=== PATIENT | female | born 1990 | race Two or more races ===

== ENCOUNTER 2020-07-18 10:43 | Observation (INO) | payer SELFPAY ==
[2020-07-18 11:44] LABS: BILIRUBIN,URINE NEGATIVE (NEG); CLARITY,URINE CLEAR; COLOR,URINE YELLOW; NITRITE,URINE NEGATIVE (NEG); PH,URINE 6.5 (<5.0-8.0); PROTEIN,URINE 30 mg/dL (NEG-TRACE)
[2020-07-18 12:21] LABS: BACTERIA,URINE MANY /HPF (0-FEW)
[2020-07-18] MEDS ORDERED: IV RINGERS,LACTATED 1000ML 1,000 ML IV PRN (13:00)
== END 2020-07-18 13:14 | disposition home or self-care (01) ==
LOC: 3 SO LND 10:43
PROVIDERS: ADMIT Obstetrics & Gynecology; ATTEND Obstetrics & Gynecology
DX: O26.853 Spotting complicating pregnancy, third trimester (principal); Z3A.29 29 weeks gestation of pregnancy; Z79.899 Other long term (current) drug therapy
CPT/HCPCS: 59025; 81001; 87086; G0378; G0379

== ENCOUNTER 2020-07-25 11:33 | Inpatient (IN) | payer SELFPAY ==
[~2020-07-25] VITALS: Ht 162.6 cm; Wt 89.0 kg
[2020-07-25] MEDS ORDERED: BETAMET ACET&NA PHOS 30 MG/5 ML VIAL. IM STA (11:50)
[2020-07-25] MEDS ORDERED: IV RINGERS,LACTATED 1000ML 1,000 ML IV SCH (12:00)
[2020-07-25] MEDS ORDERED: TERBUTALINE 1 MG/ML VIAL. SQ PRN (12:00)
[2020-07-25] MEDS ORDERED: PENICILLIN G K 5,000,000 UNIT in IV DEXTROSE 5% 100ML 100 ML IV ONE (12:00)
[2020-07-25] MEDS ORDERED: OXYTOCIN 30 UNIT/500 ML PREMIX 500 ML IV PRN ×3 (12:00→16:30)
[2020-07-25] MEDS ORDERED: ACETAMINOPHEN 325 MG TABLET. PO PRN ×2 (12:00→16:30)
[2020-07-25] MEDS ORDERED: 0.9 % SODIUM CHLORIDE 10 ML DISP.SYRIN. IV PRN ×2 (12:00→16:30)
[2020-07-25] MEDS ORDERED: PENICILLIN G K 2,500,000 UNIT in IV DEXTROSE 5% 50 ML IV SCH ×2 (12:00→16:00)
[2020-07-25] MEDS ORDERED: BUTORPHANOL 2 MG/ML VIAL. IVP PRN ×2 (12:00)
[2020-07-25] MEDS ORDERED: LIDOCAINE 1% PF 30 ML VIAL. INJ PRN (12:00)
[2020-07-25] MEDS ORDERED: OXYTOCIN PREMIX 30 UNIT/500 ML NS BAG. IV ONE (12:15)
[2020-07-25 12:27] LABS: BASO % 0 % (0-3); EOS # 0.1 x10^3/uL (0.0-0.7); EOS % 1 % (0-3); HEMATOCRIT 41.3 % (36.0-47.0); HEMOGLOBIN 14.5 g/dL (12.0-15.5); LYMPH # 1.6 x10^3/uL (1.0-4.8); LYMPH % 14 % (24-48); MEAN CORPUSCULAR HEMOGLOBIN 33 pg (25-35); MEAN CORPUSCULAR HGB CONC 35 g/dL (31-37); MEAN CORPUSCULAR VOLUME 92 fL (79-100); MONO # 0.7 x10^3/uL (0.0-1.1); MONO % 6 % (0-9); NEUT # 8.7 x10^3/uL (1.8-7.7); NEUT % 79 % (31-73); PLATELET COUNT 233 x10^3/uL (140-400); RED BLOOD COUNT 4.47 x10^6/uL (3.50-5.40); RED CELL DISTRIBUTION WIDTH 13.9 % (11.5-14.5)
--- NOTE | 2020-07-25 13:18 | PDOC1 ---
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 The pt has had a relatively uncomplicated course at [facility] [place]. The pt denies PATEL, changes in vision or abd pain. PMH: [place] Palsy PSH: Denies Meds: PNV All: NKDA OBHx: TSVD x 1, SAB x 1 SH: no tob, no EtOH FH: noncontributory Medications: Meds: Current Medications Medications (Trade) Dose Ordered Sig/Ann Route PRN Reason Start Time Stop Time Status Last Admin Dose Admin Ringer's Solution 1,000 ml @ 125 mls/hr Q8H IV 07/25/20 12:00 07/25/20 12:30 Betamethasone Sodium Phosphate (Celestone Soluspan) 12 mg 1X STAT IM 07/25/20 11:50 07/25/20 11:55 DC 07/25/20 12:09 Penicillin G Potassium [id number] unit/Dextrose 100 ml @ 100 mls/hr 1X ONCE IV 07/25/20 12:00 07/25/20 12:59 DC 07/25/20 12:32 Allergies: Coded Allergies: No Known Drug Allergies (Unverified , 07/18/20) Physical Exam: PE: GENERAL: No apparent distress. Alert and oriented. HEENT: Head normocephalic, atraumatic. NECK: Supple LUNGS: Clear to auscultation. HEART: RRR, S1, S2 present, pulses intact ABDOMEN: Soft, positive bowel sounds. EXTREMITIES: No cyanosis or edema. NEUROLOGIC: Normal speech, normal tone PSYCHIATRIC: Normal affect, normal mood. SKIN: No ulceration. FHT: 150s +acels/no decels/mLTV [place]: 2-3min SVE: 6-7/C/-2 Labs: Laboratory Tests Test 07/25/20 12:14 White Blood Count 11.0 x10^3/uL (4.0-11.0) Red Blood Count 4.47 x10^6/uL (3.50-5.40) Hemoglobin 14.5 g/dL (12.0-15.5) Hematocrit 41.3 % (36.0-47.0) Mean Corpuscular Volume 92 fL (79-100) Mean Corpuscular Hemoglobin 33 pg (25-35) Mean Corpuscular Hemoglobin Concent 35 g/dL (31-37) Red Cell Distribution Width 13.9 % (11.5-14.5) Platelet Count 233 x10^3/uL (140-400) Neutrophils (%) (Auto) 79 % (31-73) H Lymphocytes (%) (Auto) 14 % (24-48) L Monocytes (%) (Auto) 6 % (0-9) Eosinophils (%) (Auto) 1 % (0-3) Basophils (%) (Auto) 0 % (0-3) Neutrophils # (Auto) 8.7 x10^3/uL (1.8-7.7) H Lymphocytes # (Auto) 1.6 x10^3/uL (1.0-4.8) Monocytes # (Auto) 0.7 x10^3/uL (0.0-1.1) Eosinophils # (Auto) 0.1 x10^3/uL (0.0-0.7) Basophils # (Auto) 0.0 x10^3/uL (0.0-0.2) Laboratory Tests 07/25/20 12:14 Laboratory Tests 07/25/20 12:14 Assessment & Plan: A/P 30y @ 36.5 by 29wk u/s 1.) PTL expectant management 2.) Elevated BPs no s/s of preeclampsia 3.) AFP pos Maternity 21 neg 4.) Flu vaccine given 04/28/20 5.) Placental lakes 6.) Elevated GTT 0 out of 4 values or 3hr GTT abnml 7.) Fetus cat I FHT, BMTZ #1 at 1209 8.) GBS unk on PCN, since 9.) TDAP PP ANALI STEINBERG MD July 25, 2020 13:18
--- NOTE | 2020-07-25 13:19 | PDOC ---
VAGINAL DELIVERY DATE DATE: 07/25/20 TIME: 13:18 TIME Patient delivered a viable female over intact perineum at 1255. Wt 4 lb 11 oz. Apgars 8/9. Placenta delivered spontaneously, intact with 3VC. No lacerations. Good hemostasis noted. 20 U of Pit given with IVF. EBL 100cc. WEIGHT Weight [ ] ANALI STEINBERG MD July 25, 2020 13:19
[2020-07-25 15:11] VITALS: BP 135/78
[2020-07-25] MEDS ORDERED: DOCUSATE SODIUM 100 MG CAPSULE. PO PRN (16:30)
[2020-07-25] MEDS ORDERED: MAGNESIUM HYDROXIDE 2,400 MG/30 ML ORAL.SUSP. PO PRN (16:30)
[2020-07-25] MEDS ORDERED: BENZOCAINE 20% TOPICAL AEROSOL SPRAY 57GM CAN. TP PRN (16:30)
[2020-07-25] MEDS ORDERED: SIMETHICONE 80 MG TAB.CHEW PO PRN (16:30)
[2020-07-25] MEDS ORDERED: MMR per PROTOCOL. MC PRN (16:30)
[2020-07-25] MEDS ORDERED: oxyCODONE/APAP 5/325 1 TAB TABLET PO PRN (16:30)
[2020-07-25] MEDS ORDERED: HYDROCORTISONE 1% TOPICAL OINTMENT 30GM TUBE. TP PRN (16:30)
[2020-07-25] MEDS ORDERED: TDaP (Adacel) per PROTOCOL. MC PRN (16:30)
[2020-07-25] MEDS ORDERED: PHENYLEPH/MINERAL OIL/PETROLAT RECTAL OINTMENT TUBE. RC PRN (16:30)
[2020-07-25] MEDS ORDERED: ZOLPIDEM 5 MG TABLET. PO PRN (16:30)
[2020-07-25] MEDS ORDERED: MAG HYDROX/ALUMINUM HYD/SIMETH 30 ML ORAL.SUSP PO PRN (16:30)
[2020-07-25] MEDS ORDERED: diphenhydrAMINE HCL 25 MG CAPSULE PO PRN (16:30)
[2020-07-25 16:36] VITALS: BP 155/102
[2020-07-25] MEDS: IBUPROFEN 400 MG TABLET. PO PRN (17:06)
[2020-07-25 20:00] VITALS: BP 151/92
[2020-07-25 21:50] VITALS: BP 123/79
[2020-07-26] MEDS: IBUPROFEN 400 MG TABLET. PO PRN ×2 (04:02→17:18)
[2020-07-26 04:05] VITALS: BP 132/91
[2020-07-26 05:21] LABS: HEMATOCRIT 38.2 % (36.0-47.0); HEMOGLOBIN 13.2 g/dL (12.0-15.5); RED BLOOD COUNT 4.08 x10^6/uL (3.50-5.40); WHITE BLOOD COUNT 15.8 x10^3/uL (4.0-11.0)
[2020-07-26] MEDS ORDERED: FERROUS SULFATE 325 MG TABLET. PO SCH (08:00)
[2020-07-26] MEDS: PRENATAL MULTIVITAMIN TABLET. PO SCH (08:32)
[2020-07-26 08:33] VITALS: BP 132/94
--- NOTE | 2020-07-26 11:02 | PDOC ---
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 Katherine PO. Voiding. Minimal lochia. Denies PATEL, changes in vision or abd pain. The pt did notice a fever last night, but feels better this am. Objective: Vital Signs: Vital Signs Date Time Temp Pulse Resp B/P (MAP) Pulse Ox O2 Delivery O2 Flow Rate FiO2 07/25/20 15:00 Room Air 07/25/20 15:11 99.9 96 20 135/78 (97) 99.9 07/25/20 20:00 97 Vital Signs Date Time Temp Pulse Resp B/P (MAP) Pulse Ox O2 Delivery O2 Flow Rate FiO2 07/26/20 08:33 98.2 78 20 132/94 (107) 98.2 07/26/20 08:30 Room Air 07/26/20 04:05 98 Labs: Laboratory Tests Test 07/25/20 12:14 07/25/20 14:19 07/26/20 05:00 White Blood Count 11.0 x10^3/uL (4.0-11.0) 15.8 x10^3/uL (4.0-11.0) H Red Blood Count 4.47 x10^6/uL (3.50-5.40) 4.08 x10^6/uL (3.50-5.40) Hemoglobin 14.5 g/dL (12.0-15.5) 13.2 g/dL (12.0-15.5) Hematocrit 41.3 % (36.0-47.0) 38.2 % (36.0-47.0) Mean Corpuscular Volume 92 fL (79-100) 94 fL (79-100) Mean Corpuscular Hemoglobin 33 pg (25-35) 32 pg (25-35) Mean Corpuscular Hemoglobin Concent 35 g/dL (31-37) 35 g/dL (31-37) Red Cell Distribution Width 13.9 % (11.5-14.5) 14.0 % (11.5-14.5) Platelet Count 233 x10^3/uL (140-400) 226 x10^3/uL (140-400) Neutrophils (%) (Auto) 79 % (31-73) H Lymphocytes (%) (Auto) 14 % (24-48) L Monocytes (%) (Auto) 6 % (0-9) Eosinophils (%) (Auto) 1 % (0-3) Basophils (%) (Auto) 0 % (0-3) Neutrophils # (Auto) 8.7 x10^3/uL (1.8-7.7) H Lymphocytes # (Auto) 1.6 x10^3/uL (1.0-4.8) Monocytes # (Auto) 0.7 x10^3/uL (0.0-1.1) Eosinophils # (Auto) 0.1 x10^3/uL (0.0-0.7) Basophils # (Auto) 0.0 x10^3/uL (0.0-0.2) Treponema pallidum Antibody Nonreactive (Nonreactive) SARS-CoV-2 Antigen (Rapid) Negative (NEGATIVE) Laboratory Tests 07/25/20 12:14 07/26/20 05:00 Laboratory Tests 07/26/20 05:00 Physical Exam: GENERAL: No apparent distress. Alert and oriented. HEENT: Head normocephalic, atraumatic. NECK: Supple LUNGS: Clear to auscultation. HEART: RRR, S1, S2 present, pulses intact ABDOMEN: Soft, positive bowel sounds. EXTREMITIES: No cyanosis or edema. NEUROLOGIC: Normal speech, normal tone PSYCHIATRIC: Normal affect, normal mood. SKIN: No ulceration. FFNT below umb No C/C/E Assessment & Plan: A/P 30y PPD #1 s/p @ 36.5 1.) PP doing well 2.) GHTN BPs nml to mild, no s/s of preeclampsia 3.) Low grade temp Tmax 100.0 (at 2150 on 07/25/20), WBC 11.0 -> 15.8, repeat CBC in am 4.) Flu vaccine given 04/28/20 5.) TDAP prior to d/c 6.) Hgb 14.5 -> 13.2 7.) Cont PP care ANALI STEINBERG MD July 26, 2020 11:01
[2020-07-26 12:10] VITALS: BP 140/100
[2020-07-26 17:00] VITALS: BP 133/95
[2020-07-26 20:00] VITALS: BP 140/101
[2020-07-26 22:45] VITALS: BP 143/98
[2020-07-27 02:30] VITALS: BP 119/83
[2020-07-27] MEDS: IBUPROFEN 400 MG TABLET. PO PRN (02:30)
[2020-07-27 08:08] LABS: BASO # 0.1 x10^3/uL (0.0-0.2); BASO % 1 % (0-3); EOS # 0.1 x10^3/uL (0.0-0.7); EOS % 1 % (0-3); HEMATOCRIT 38.5 % (36.0-47.0); LYMPH % 24 % (24-48); MEAN CORPUSCULAR HEMOGLOBIN 32 pg (25-35); MEAN CORPUSCULAR HGB CONC 34 g/dL (31-37); MEAN CORPUSCULAR VOLUME 96 fL (79-100); MONO # 0.9 x10^3/uL (0.0-1.1); MONO % 7 % (0-9); NEUT # 8.4 x10^3/uL (1.8-7.7); NEUT % 67 % (31-73); PLATELET COUNT 239 x10^3/uL (140-400); RED BLOOD COUNT 4.03 x10^6/uL (3.50-5.40); RED CELL DISTRIBUTION WIDTH 14.2 % (11.5-14.5); WHITE BLOOD COUNT 12.5 x10^3/uL (4.0-11.0)
[2020-07-27] MEDS: PRENATAL MULTIVITAMIN TABLET. PO SCH (08:22)
[2020-07-27 09:15] VITALS: BP 132/88
[2020-07-27] MEDS ORDERED: DOCU-109 PO (12:42)
[2020-07-27] MEDS ORDERED: IBUP-1060 PO (12:42)
[2020-07-27 13:30] VITALS: BP 121/69
--- NOTE | 2020-07-27 15:19 | PDOC ---
[employer] SUPERVISOR PROGRESS NOTE Date of Service: DATE: 07/27/20 TIME: 15:19 Subjective: Pt with good pain control. Katheirne PO. Voiding. Minimal lochia. Denies PATEL, changes in vision, or abd pain. Denies f/c. Objective: Vital Signs: Vital Signs Date Time Temp Pulse Resp B/P (MAP) Pulse Ox O2 Delivery O2 Flow Rate FiO2 07/26/20 08:30 Room Air 07/26/20 08:33 98.2 78 20 132/94 (107) 98.2 07/26/20 20:00 97 Vital Signs Date Time Temp Pulse Resp B/P (MAP) Pulse Ox O2 Delivery O2 Flow Rate FiO2 07/27/20 09:15 98.2 91 20 132/88 (103) 98 98.2 07/27/20 02:30 Room Air Labs: Laboratory Tests Test 07/27/20 06:30 White Blood Count 12.5 x10^3/uL (4.0-11.0) H Red Blood Count 4.03 x10^6/uL (3.50-5.40) Hemoglobin 13.0 g/dL (12.0-15.5) Hematocrit 38.5 % (36.0-47.0) Mean Corpuscular Volume 96 fL (79-100) Mean Corpuscular Hemoglobin 32 pg (25-35) Mean Corpuscular Hemoglobin Concent 34 g/dL (31-37) Red Cell Distribution Width 14.2 % (11.5-14.5) Platelet Count 239 x10^3/uL (140-400) Neutrophils (%) (Auto) 67 % (31-73) Lymphocytes (%) (Auto) 24 % (24-48) Monocytes (%) (Auto) 7 % (0-9) Eosinophils (%) (Auto) 1 % (0-3) Basophils (%) (Auto) 1 % (0-3) Neutrophils # (Auto) 8.4 x10^3/uL (1.8-7.7) H Lymphocytes # (Auto) 3.0 x10^3/uL (1.0-4.8) Monocytes # (Auto) 0.9 x10^3/uL (0.0-1.1) Eosinophils # (Auto) 0.1 x10^3/uL (0.0-0.7) Basophils # (Auto) 0.1 x10^3/uL (0.0-0.2) Laboratory Tests 07/27/20 06:30 Laboratory Tests 07/27/20 06:30 Physical Exam: GENERAL: No apparent distress. Alert and oriented. HEENT: Head normocephalic, atraumatic. NECK: Supple LUNGS: Clear to auscultation. HEART: RRR, S1, S2 present, pulses intact ABDOMEN: Soft, positive bowel sounds. EXTREMITIES: No cyanosis or edema. NEUROLOGIC: Normal speech, normal tone PSYCHIATRIC: Normal affect, normal mood. SKIN: No ulceration. FFNT below umb No C/C/E Assessment & Plan: A/P 30y PPD #2 s/p @ 36.5 1.) PP doing well 2.) GHTN BPs nml to mild, no s/s of preeclampsia 3.) Low grade temp Tmax 100.0 (at 2150 on 07/25/20), WBC 11.0 -> 15.8 -> 12.5 4.) TDAP given 07/27/20 5.) Hgb 14.5 -> 13.2 -> 13.0 5.) D/c home ANALI STEINBERG MD July 27, 2020 15:19
--- NOTE | 2020-07-27 16:22 | NUR ---
ambulated to ER door accompanied by father and RN. Baby was in car seat and placed in back seat rear facing
--- NOTE | 2020-07-27 21:39 | DS ---
DATE OF DISCHARGE: 07/27/2020 ADMITTING DIAGNOSES: 1. Intrauterine at 36 weeks and 5 days by 29-week ultrasound. 2. labor. 3. Elevated blood pressures. 4. Abnormal quad screen with normal maternity 21. 5. Placental lakes seen on most recent anatomy scan. 6. Status post flu vaccine. 7. Elevated GTT with 0/4 values of the 3-hour GTT elevated. 8. GBS unknown. DISCHARGE DIAGNOSES: 1. Intrauterine at 36 weeks and 5 days by 29-week ultrasound. 2. labor. 3. Gestational hypertension. 4. Abnormal quad screen with normal maternity 21. 5. Placental lakes seen on most recent anatomy scan. 6. Status post flu vaccine. 7. Elevated GTT with 0/4 values of the 3-hour GTT elevated. 8. GBS unknown. PROCEDURE: Spontaneous vaginal delivery. HOSPITAL COURSE: The patient is a 30-year-old 3, para 1-0-1-1, who presented to labor and delivery at 36 weeks and 5 days by 29-week ultrasound with contractions. The [place]com[place] [facility] [place] The patient denied any headache, changes in vision or abdominal pain during the course of her hospitalization. On presentation, the patient was found to be 6-7 cm dilated. The patient was given a dose of betamethasone and started on penicillin for GBS unknown status. The patient delivered shortly after presentation by vaginal delivery. See delivery note for full detail. Throughout her hospital stay, the patient had [id number] range blood pressures. On postop day #0, the patient spiked a fever of 100, the patient also had a white count go from 11.0 to 15.8. It was unknown if the fever was related to the delivery or if she had some sort of infection. The patient had no local signs of infection, so the patient was expectantly managed. Throughout the hospital course, the patient's white count improved and she never had a fever again. When the patient reached day #2, she was meeting all discharge criteria and was subsequently discharged home. Of note, the patient's hemoglobin on admission was 14.5 and after delivery was found to be 13.2. DISCHARGE INSTRUCTIONS: The patient was told not to lift anything greater than 20 pounds and have pelvic rest for 6 weeks. CALL IF: The patient was to call if she had fevers, chills, nausea, vomiting, abdominal pain, or any additional questions or concerns. FOLLOWUP APPOINTMENT: The patient was to follow up on 08/04/2020 at 2:20 p.m. [place] [facility] [place]. DISCHARGE MEDICATIONS: The patient was given prescription for Motrin 800 mg 30 pills and Colace 100 mg 30 pills. RUDDY/KELLI/MARKO DR: RUDDY/carlos TID: [id number] MTDD
--- NOTE | 2020-07-29 09:10 | PATHOLOGY ---
[facility] Accession Number: [id number] . 01 Material submitted: . placenta - PLACENTA AND CORD . 01 Clinical history: . . FE . 02 Diagnosis: 402 gram placenta of an estimated 36 weeks gestation with attached membranes and umbilical cord: - Placental hemangioma (chorangioma). (JPM:kadie; 07/28/2020) [facility] 07/29/2020 0832 Local . 02 Comment: There is no evidence of an acute chorioamnionitis or villitis. There are no infarcts. (JPM:kadie; 07/28/2020) . 02 Electronically signed: . Madan Hutchinson MD, Pathologist NPI- [id number] . 01 Gross description: . Labeled: Marcy Lr No source is listed on the container.The source is listed on the requisition as, "placenta". Specimen received: in formalin Trimmed placental weight: 402 gm Dimensions: 15 x 14 x 2.5 cm membranes: [id number] opaque membrane rupture: 5.8 cm from placental disc edge membrane insertion: Marginal Umbilical cord: 35 cm in length, 0.7 cm in diameter; there are no knots identified Umbilical cord insertion: paracentral, 3.7 cm from the closest placental margin Number of umbilical vessels: Three surface: van-blue glistening and well vascularized Maternal surface: Red-Brown and unremarkable Abnormalities: None . Television Repairer sections are submitted in 4 cassettes as follows: A1 proximal and distal umbilical cord A2 membranes, Rolled and maternal surface A3 architectural representative peripheral placenta A4 architectural representative central placenta with surface adjacent to umbilical cord insertion site ([facility]; 07/27/2020) DAPHNIE/DAPHNIE 07/27/2020 1628 Local . 02 Pathologist provided ICD-10: O43.893, Z37.0, Z3A.38 . 02 CPT . 143889 Specimen Comment: A courtesy copy of this report has been sent to [phone] Specimen Comment: Report sent to Performed at: 01 [facility] [address], [place] [id number] MD Mark Hwang MD Phone: [phone] Performed at: 02 [facility] [address] [place], [place] [id number] MD Madan Hutchinson MD Phone: [phone]
== END 2020-07-27 14:00 | disposition home or self-care (01) | DRG 806 ==
LOC: OBSVTOIN 11:33 → 3 SO LND 11:33
PROVIDERS: ADMIT Obstetrics & Gynecology; ATTEND Obstetrics & Gynecology
PROC: 10E0XZZ Delivery of Products of Conception, External Approach (ICD-10-PCS; principal; 2020-07-25)
PROC: 3E033VJ Introduction of Other Hormone into Peripheral Vein, Percutaneous Approach (ICD-10-PCS; 2020-07-25)
DX: O60.14X0 Preterm labor third trimester with preterm delivery third trimester, not applicable or unspecified (principal); O86.4 Pyrexia of unknown origin following delivery; Z37.0 Single live birth; Z20.822 Contact with and (suspected) exposure to COVID-19; O13.4 Gestational [pregnancy-induced] hypertension without significant proteinuria, complicating childbirth; Z3A.36 36 weeks gestation of pregnancy
CPT/HCPCS: 36415; 85025; 85027; 86592; 86850; 86900; 86901; 87426; 88307; G0378; J0702; J2540; J2590; J7060; J7120; U0003; U0005